=== PATIENT | female | born 1950 | race Caucasian/White ===

== ENCOUNTER 2017-01-14 14:41 | Inpatient (IN) | payer MEDICARE ==
[~2017-01-14] VITALS: Ht 157.5 cm; Wt 69.4 kg
--- NOTE | 2017-01-16 12:40 | ER ---
ADMIT: 01/14/2017 RM/LOC: 519 [facility] MR#: [id number] [address] [place] [id number] DION MARR CORDELL ADAMS [address] [place] [address] Emergency Room Report SEX: F AGE: 66 : 1950 DATE: 01/14/2017 CHIEF COMPLAINT: Sore throat for 3 days. HISTORY OF PRESENT ILLNESS: The family is sick and they are getting over their illness. She has had fever, chills, sore throat, headache, and lower abdominal pain. REVIEW OF SYSTEMS: Otherwise negative. PAST MEDICAL HISTORY: Diabetes type 2. She has had knee problems and has had a hysterectomy. She takes metformin. MEDICATIONS: She is not very straight forward with the medication she takes, although she may not be able to remember them all. PHYSICAL EXAMINATION: VITAL SIGNS: Temp is 104.5, O2 sats 91%. GENERAL: Well nourished, moderately anxious, very pleasant, however. Skin is very warm and red. ENT: Nasal mucosa patent. Pharynx clear. Airway normal. NECK: Supple. RESPIRATIONS: No distress. ABDOMEN: Nontender, essentially. CVS: Tachycardic. SKIN: Good color and turgor. EXTREMITIES: Nontender. NEUROLOGIC: Oriented x4, although she has some depressed mood. LABORATORY DATA: Chest x-ray, normal. EKG, tachycardia 106. Lactic acid 1.1. Sepsis protocol got started concerning labs. She is B negative. Procalcitonin is 0.58 and normal. CBC is within normal limits with a platelet of 124. Her potassium is 3.6, glucose 211. Flu screen negative. Strep ADMIT: 01/14/2017 RM/LOC: 519 [facility] MR#: [id number] [address] [place] [address] [address] [place], [place] [id number] CORDELL NIELSEN [address] [place] [address] Emergency Room Report SEX: F AGE: 66 : 1950 screen negative. Her urine shows RBCs 2, WBCs clumps, ketones 1+, nitrites 1+, WBCs 100, glucose 150, protein 1+. CLINICAL IMPRESSION: 1. Pyelonephritis. 2. Fever. 3. Proteinuria. Dr. Edouard was contacted for admission. The patient had gotten started already on vancomycin and Zosyn, and a line was placed to give her some fluid hydration and may help her with the fever. She was given 1 g of Tylenol as a triage order. She was put on 2 L of oxygen as she was desatting at 89. Zofran 4 mg ODT and morphine for her headache. ASHLEY Oliveira / Leonardo Herrera MD / johnson JOB #: [id number] CC: Leonardo Edouard MD, Attending Physician Leonardo Edouard MD, Family Physician
--- NOTE | 2017-01-16 16:18 | HP ---
ADMIT: 01/14/2017 RM/LOC: 519 [facility] MR#: [id number] [address] [id number] ASHLEYCORDELL BAUM [address] [place] [address] History and Physical SEX: F AGE: 66 : 1950 DATE OF SERVICE: CHIEF COMPLAINT: Fever, weakness, cough. HISTORY OF PRESENT ILLNESS: Cordell is a 66-year-old, nonsmoking female, who has a history of type 2 diabetes mellitus. She thinks she takes metformin, however, she is unclear. She sees a local physician Dr. Eros Elizondo. She states that approximately 48 hours ago, she noted that she started feeling weak, body aches, headaches as well as a cough. She actually called the ambulance to come get her and take her to the ER. She was evaluated by the Laisha RAMIREZ in the ER. She does have an extensive evaluation, ultimately diagnosed with urinary tract infection and likely pyelonephritis. She was initiated on Zosyn and vancomycin in the Emergency Department and referred for admission. I evaluated down in the ER. She endorses the above history. She has no chest pain or shortness of breath. No nausea, no vomiting. She actually denies any dysuria, but she does have some urinary frequency and has trouble holding her urine. She takes metformin she thinks, but other than that, she takes no medications. She does not drink, smoke, or do drugs, and she feels that her mother of cancer and extensively positive family history of diabetes. She was transferred to the floor, was transferred again upon arrival to the general medicine floor. She was noted to have a left inguinal mass on examination as well. States that it has been there for quite a long time, but has never had this evaluated. PAST MEDICAL HISTORY: Hyperlipidemia and diabetes. MEDICATIONS: Metformin, she thinks. ALLERGIES: NO KNOWN MEDICAL ALLERGIES. FAMILY HISTORY: Cancer in mother, father of old age, extensively positive for diabetes in multiple siblings. SOCIAL HISTORY: She lives in [place]. She does not drink, smoke, or do drugs. REVIEW OF SYSTEMS: Complete review of systems reviewed per HPI. PHYSICAL EXAMINATION: VITAL SIGNS: Blood pressure is 108/65, pulse is 80, respiratory rate is 16, temperature is 99.1, she is 91% right now on room air. GENERAL: She is alert and oriented x3, in no acute distress. HEENT: Normocephalic, atraumatic. Extraocular muscles are intact. Pupils equal and responsive to light. No nasal discharge. NECK: Supple. Trachea is midline. No supraclavicular lymphadenopathy. HEART: Regular rhythm and rate. LUNGS: Clear to auscultation bilaterally, mildly distant. ABDOMEN: Soft, nontender, nondistended. She has a left inguinal mass. She ADMIT: 01/14/2017 RM/LOC: 519 [facility] MR#: [id number] [address] [place] [id number] [place], [place] [address]ADACOR[place]LL [address] [place] [address] History and Physical SEX: F AGE: 66 : 1950 has painful palpation of bilateral costovertebral angles. PSYCHIATRIC: She has normal affect and is actually feeling well and she is not depressed. LABORATORY AND X-RAY DATA: White blood cell is 7.8, hemoglobin is 13.8, platelets are 124. Influenza A and B are negative. Group A strep negative. UA with urinary tract infection and gross pyuria. Sodium is 135, potassium is 3.6, chloride is 101, bicarb is 25, BUN is 11, creatinine is 0.7, glucose 211, calcium is 8.4, total bilirubin is 1.4, total protein is 7.6, albumin is 3.5, alk phos is 104, AST is 28, ALT is 45. Chest x-ray, no acute cardiopulmonary process. Blood cultures are drawn and pending. Lactic acid is 1.1, INR is 1.14, alk phos is 1.9, mag is 1.7, troponin is 0.017, CK is 83, CK-MB 0.7, procalcitonin is 0.58. ASSESSMENT: 1. Presumed pyelonephritis. 2. Diabetes mellitus, type 2. 3. Left inguinal mass. PLAN: At this time, I will go ahead and admit her to my service. I will maintain her on some IV fluid resuscitation. She is a bit dry on exam. Her laboratories actually do not look too terribly bad tonight. She does have gross pyuria and substantial evidence of urinary tract infection and likely pyelonephritis. She does have CVA tenderness. We will await her blood culture results. I am very concerned about this left inguinal mass. Many years ago, she was seen for abdominal pain back in 2006 and did have some mild changes on her kidney, fatty infiltration of her liver. I will go ahead and complete an ultrasound of this left inguinal region. I will also go ahead and complete a CT of the abdomen and pelvis to clearly delineate the extent of her pyelonephritis as well as I am concerned that this left inguinal mass may represent a malignant process. She wishes to be full code. We will place her on SCDs and JEANINE hose, and we will place her on some heparin for prophylaxis. I discussed the patient's plan with the patient and the family, they expressed understanding, were in agreement, had no further questions. Leonardo Edouard MD/ johnson JOB #: [id number] CC: Leonardo Edouard, Attending Physician Leonardo Edouard, Family Physician
[2017-01-16] MEDS ORDERED: GLUCOTROL DPS10 MG PO (21:01)
[2017-01-16] MEDS ORDERED: GLUCOPHAGE DPS850 MG PO (21:01)
[2017-01-16] MEDS ORDERED: TYLENOL DPS325 MG PO (21:01)
[2017-01-16] MEDS ORDERED: BACTRIM DS DPS1 TAB PO (21:02)
--- NOTE | 2017-01-26 18:07 | DS ---
ADMIT: 01/14/2017 RM/LOC: 519 [facility] MR#: [id number] [address] [id number] ASHLEYCORDELL BAUM [address] [place] [address] Discharge Summary SEX: F AGE: 66 : 1950 ADMISSION DATE: 01/14/2017 DISCHARGE DATE: 01/16/2017 CONSULTATIONS: None. FINAL DIAGNOSES: 1. Urinary tract infection. 2. Type 2 diabetes mellitus. 3. Presumed left inguinal hernia, reduced and resolved. REASON FOR ADMISSION: Please see history and physical; however briefly, the patient was admitted with fevers and urinary tract infection. HOSPITAL COURSE: He was admitted to the service of [facility] under the care of myself, Leonardo Edouard MD. He receives goal- directed therapy. He responded nicely to therapy and discharges to home. DISPOSITION: Home. DISCHARGE CONDITION: Stable. DISCHARGE MEDICATIONS: See the medication reconciliation. It is reviewed and accurate. DISCHARGE INSTRUCTIONS: She will discharge to home. She will follow up with myself in 1 to 2 weeks' time so she does no longer have a primary care physician. Thirty minutes spent on discharge activities of this patient. Interpretive services utilized for this interaction. Leonardo Edouard MD/ kathy JOB #: [id number] CC: Leonardo Edouard MD, Attending Physician Leonardo Edouard MD, Family Physician
== END 2017-01-16 16:12 | disposition home or self-care (01) | DRG 872 ==
LOC: ER 14:41 → 5MS 18:10
PROVIDERS: ADMIT Internal Medicine
DX: A41.9 Sepsis, unspecified organism (principal); N12 Tubulo-interstitial nephritis, not specified as acute or chronic; R09.02 Hypoxemia; E11.9 Type 2 diabetes mellitus without complications; K40.90 Unilateral inguinal hernia, without obstruction or gangrene, not specified as recurrent; E78.5 Hyperlipidemia, unspecified; R91.1 Solitary pulmonary nodule; Z79.84 Long term (current) use of oral hypoglycemic drugs

== ENCOUNTER 2017-02-16 07:16 | Day surgery (SDC) | payer MEDICARE ==
[~2017-02-16] VITALS: Ht 157.5 cm; Wt 65.8 kg
[~2017-02-16 07:16] MED LIST: BACTRIM DS DPS1 TAB PO; GLUCOPHAGE DPS850 MG PO; GLUCOTROL DPS10 MG PO; TYLENOL DPS325 MG PO
--- NOTE | 2017-02-17 08:27 | OR ---
ADMIT: 02/16/2017 RM/LOC: [facility] MR#: [id number] [address] [address] DION MARR CORDELL ADAMS [address] [place] [address] Operative/Delivery Room Report SEX: F AGE: 67 : 1950 SURGERY DATE: 02/16/2017 SURGEON: Jose Roberto Walters MD PROCEDURE: Total colonoscopy with hot biopsy polypectomies. PREOPERATIVE DIAGNOSIS: Screening colonoscopy. POSTOPERATIVE DIAGNOSIS: Colon polyps. DESCRIPTION OF PROCEDURE: The patient was brought to the procedure room, placed in left lateral decubitus position. Informed consent had been obtained preoperatively. The risks and benefits including, but not limited to, perforation, sedation, bleeding were discussed with the patient and agreed upon. All questions were answered, alternatives discussed, the patient agreed. TIVA was provided by the [employer]INEER with propofol. Anal inspection, digital examination revealed no abnormalities or obstructing masses. Olympus videoendoscope, model CF-H180AL was advanced to the cecum without difficulty. The appendiceal orifice and ileocecal valve were identified. The valve was not cannulated due to position, multiple polyps were encountered in the cecum in the right colon, these were all removed with the hot biopsy forceps, cauterized, and retrieved. In the transverse colon, there were additional polyps proximally that were removed in a similar fashion. The distal transverse, descending, sigmoid, and rectum were normal. Scope was retroflexed. The anal verge appeared normal. The patient tolerated the procedure well. No complications were expected. Blood loss was less than 1 mL. She will call me in 1 week for her biopsy report, or sooner if she should have any postoperative problems. Recommend she have repeat colonoscopy in 5 years unless signs or symptoms develop in the interval. Jose Roberto Walters MD/ johnson JOB #: [id number] CC: Jose Roberto Walters, Attending Physician Leonardo Edouard, Family Physician Leonardo Edouard MD
== END 2017-02-16 10:49 | disposition home or self-care (01) ==
LOC: SSS 07:16
PROC: 0DBH8ZX Excision of Cecum, Via Natural or Artificial Opening Endoscopic, Diagnostic (ICD-10-PCS; principal; 2017-02-16)
PROC: 0DBK8ZX Excision of Ascending Colon, Via Natural or Artificial Opening Endoscopic, Diagnostic (ICD-10-PCS; principal; 2017-02-16)
PROC: 0DBL8ZX Excision of Transverse Colon, Via Natural or Artificial Opening Endoscopic, Diagnostic (ICD-10-PCS; principal; 2017-02-16)
DX: Z12.11 Encounter for screening for malignant neoplasm of colon (principal); E11.9 Type 2 diabetes mellitus without complications; Z90.710 Acquired absence of both cervix and uterus; Z90.49 Acquired absence of other specified parts of digestive tract; Z79.899 Other long term (current) drug therapy